=== PATIENT | female | born 1955 | race Caucasian/White ===

== ENCOUNTER 2020-07-07 09:02 | Emergency (ER) | payer MEDICARE, OTHER ==
[~2020-07-07] VITALS: Ht 157.5 cm; Wt 74.8 kg
[2020-07-07 09:48] LABS: BASOPHILS ABSOLUTE AUTO 0.04 K/mm3 (0.00-0.23); BASOPHILS PERCENT AUTO 1 % (0-2); EOSINOPHILS PERCENT AUTO 4 % (0-6); IMMATURE GRAN ABSOLUTE AUTO 0.02 K/mm3 (0.00-0.10); IMMATURE GRAN PERCENT AUTO 0 % (0-1); LYMPHOCYTES PERCENT AUTO 32 % (21-46); MONOCYTES ABSOLUTE AUTO 0.49 K/mm3 (0.16-1.47); MONOCYTES PERCENT AUTO 9 % (4-13); Mean Corpuscular HGB 30.3 pg (26.0-34.0); Mean Corpuscular HGB Conc 32.5 g/dL (31.5-36.5); Mean Corpuscular Volume 93 fL (80-100); Mean Platelet Volume 9.9 fL (9.1-12.4); NEUTROPHILS PERCENT AUTO 54 % (41-73); Platelet Count 311 K/mm3 (150-400); RDW Coefficient Variation 13.5 % (11.7-14.2); RDW Standard Deviation 45.8 fL (35.1-46.3); Red Blood Cell Count 4.29 M/mm3 (3.80-5.20); White Blood Cell Count 5.35 K/mm3 (4.00-11.30)
[2020-07-07] MEDS ORDERED: ATOR20 PO (10:00)
[2020-07-07 10:07] LABS: Alanine Aminotransfer (ALT/SGP 28 U/L (12-78); Albumin, Blood 3.8 g/dL (3.4-5.0); Albumin/Globulin Ratio 1.2 (0.8-1.8); Alk Phos 88 U/L (50-136); Anion Gap 4 mmol/L (6-16); Aspartate Aminotrans (AST/SGOT 15 U/L (12-37); Bilirubin, Total 0.5 mg/dL (0.1-1.0); Blood Urea Nitrogen 15 mg/dL (8-24); Bun/Creatinine Ratio 21.1 (12.0-20.0); CO2, Blood 28 mmol/L (21-32); Calcium, Blood 8.8 mg/dL (8.5-10.1); Chloride, Blood 106 mmol/L (98-108); Creatinine, Blood 0.71 mg/dL (0.40-1.00); Globulin, Blood 3.3 g/dL (2.2-4.0); Glomerular Filtration Rate >60 (60-); Glucose, Blood 93 mg/dL (70-99); Potassium, Blood 4.4 mmol/L (3.5-5.5); Sodium, Blood 138 mmol/L (136-145); Total Protein, Blood 7.1 g/dL (6.4-8.2)
[2020-07-07] MEDS ORDERED: Norco 5-325 Ta1 EACH PO (12:32)
== END 2020-07-07 13:05 | disposition home or self-care (01) ==
LOC: ER 09:02
PROVIDERS: Physician Assistant
DX: R10.13 Epigastric pain (principal); E78.00 Pure hypercholesterolemia, unspecified
CPT/HCPCS: 36415; 74177; 80053; 83690; 85025; 96374-59; 96375; 96376; 99284-25; J2405; J3010; Q9967

== ENCOUNTER 2020-07-29 11:33 | Day surgery (SDC) | payer MEDICARE, OTHER ==
[~2020-07-29] VITALS: Ht 160 cm; Wt 74.4 kg
[~2020-07-29 11:33] MED LIST: ATOR20 PO; Norco 5-325 Ta1 EACH PO
== END 2020-07-29 15:17 | disposition home or self-care (01) ==
LOC: ORSCSDS 11:33
PROVIDERS: Surgery
PROC: 0WUF0JZ Supplement Abdominal Wall with Synthetic Substitute, Open Approach (ICD-10-PCS; principal; 2020-07-29 13:00)
DX: K43.9 Ventral hernia without obstruction or gangrene (principal); Z87.891 Personal history of nicotine dependence; Z79.899 Other long term (current) drug therapy
CPT/HCPCS: A9270; C1781; J0690; J1100; J1885; J2250; J2405; J2704; J2710; J3010; J7120

== ENCOUNTER → 2020-12-16 | Outpatient (CLI) | payer MEDICARE, OTHER | END | disposition home or self-care (01) | LOC: LAB SHORT 14:20 | DX: Z48.817 Encounter for surgical aftercare following surgery on the skin and subcutaneous tissue (principal); L08.9 Local infection of the skin and subcutaneous tissue, unspecified | CPT/HCPCS: 87070; 87077; 87186; 87205 ==

== ENCOUNTER → 2021-05-04 | Outpatient (CLI) | payer MEDICARE ==
[2021-05-05 15:11] LABS: HPV 16 Negative (Negative); HPV 18 Negative (Negative); HPV OTHER HR TYPES Negative (Negative)
== END | disposition home or self-care (01) ==
LOC: LAB SHORT 17:16 → LAB 17:16
PROVIDERS: Obstetrics & Gynecology
DX: Z01.419 Encounter for gynecological examination (general) (routine) without abnormal findings (principal)
CPT/HCPCS: 87624; G0123

== ENCOUNTER 2025-03-10 08:45 | Day surgery (SDC) | payer OTHER ==
[~2025-03-10] VITALS: Ht 160 cm; Wt 80.5 kg
[2025-03-10] VITALS (9 sets, daily range): BP systolic 131–191; BP diastolic 78–106
[~2025-03-10 08:45] MED LIST changes: +Flonase 0.05% N16 GM; +MAG DELAY64 MG PO; +MULTI-VITAMIN1 EAC2 PO; +OMEGA-3 FISH O1 EAC6 PO; +THERA-D2000 UNIT PO
[2025-03-10] MEDS ORDERED: CeFAZolin Sodium 2,000 MG in NS 100 ML IV SCH (09:10)
--- NOTE | 2025-03-10 09:36 | NUR ---
AMBULATORY INTO SDS. PT DENIES PAIN, BUT REPORTS FEELING ANXIOUS.BP 191/99. HISTORY AND ALLERGIES REVIEWED. LUNGS CLEAR-PT DENIES SOB. SATS 99% ON RA. NPO STATUS CONFIRMED. PT BELONGINGS IN BAG BELOW BED. PT GAVE HER GLASSES AND PURSE TO HER SELINA. PT CLOTHING IN BELONGINGS BAG BELOW GURNEY.
[2025-03-10] MEDS ORDERED: Bupivacaine 0.5% HCl 5 MG/ML 30MLVIAL ONE (09:45)
[2025-03-10] MEDS ORDERED: Midazolam HCl 1MG / ML 2ML Vial IV SCH (10:35)
[2025-03-10] MEDS ORDERED: FentaNYL Citrate 50 MCG/ML 2 ML Injection ONE (10:47)
[2025-03-10] MEDS ORDERED: Ketorolac Tromethamine 30mg Vial ONE (11:37)
[2025-03-10] MEDS ORDERED: Sugammadex Sodium 200 MG/2ML SDV (100 MG/ML) ONE (11:37)
[2025-03-10] MEDS ORDERED: HYDROmorphone HCl/Pf 1MG SYR IV PRN ×2 (11:55→13:15)
[2025-03-10] MEDS ORDERED: Ondansetron HCl 2 MG / ML 2ML Vial IV PRN (11:55)
[2025-03-10] MEDS ORDERED: FentaNYL Citrate 50 MCG/ML 2 ML Injection IV PRN ×2 (11:55→13:15)
[2025-03-10] MEDS ORDERED: Albuterol 2.5 MG/3 ML VIAL INH PRN (11:55)
[2025-03-10] MEDS ORDERED: HYDROcodone 5-APAP 325 TAB PO PRN (12:00)
--- NOTE | 2025-03-10 13:16 | NUR ---
Discharge instructions reviewed with patient. Patient verbalizes understanding. Copy given to patient to take home. Dressing c/d/i. 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 Ice pack provided. Patient States Post-Procedure ride home has been arranged. Discharged via wheelchair to private car for ride home.
== END 2025-03-10 13:15 | disposition home or self-care (01) ==
LOC: ORSCMMR 08:45 → ORD 09:30 → ORSCMMR 10:30
PROVIDERS: Surgery
PROC: 0WUF0JZ Supplement Abdominal Wall with Synthetic Substitute, Open Approach (ICD-10-PCS; principal; 2025-03-10 10:30)
DX: K43.9 Ventral hernia without obstruction or gangrene (principal); E78.00 Pure hypercholesterolemia, unspecified; Z87.891 Personal history of nicotine dependence
CPT/HCPCS: A9270; C1781; J0690; J1885; J2250; J2704; J3010; J7120